=== PATIENT | male | born 1965 | race Caucasian/White ===

== ENCOUNTER 2017-07-04 08:47 | Emergency (ER) | payer OTHER ==
[2017-07-04 08:54] VITALS: RESP 16
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
[2017-07-04 11:30] VITALS: BP 148/100; PULSE 67; TEMP 98.6; O2SAT 95
== END 2017-07-04 11:30 | disposition home or self-care (01) ==
DX: S22.42XA Multiple fractures of ribs, left side, initial encounter for closed fracture (principal); V18.0XXA Pedal cycle driver injured in noncollision transport accident in nontraffic accident, initial encounter; Y92.89 Other specified places as the place of occurrence of the external cause; Y99.8 Other external cause status; Y93.55 Activity, bike riding